=== PATIENT | female | born 1985 | race Caucasian/White ===

== ENCOUNTER 2019-02-04 01:21 | Inpatient (IN) | payer MEDICAID ==
[2019-02-04] MEDS ORDERED: BUTORPHANOL 2 MG INJ IV ×2 (02:00)
[2019-02-04] MEDS ORDERED: LIDOCAINE 1% (MPF) 30 ML INJ INJ (02:00)
[2019-02-04] MEDS ORDERED: IBUPROFEN 600 MG TAB PO (02:00)
[2019-02-04] MEDS ORDERED: CARBOPROST 250 MCG INJ IM ×2 (02:00→12:30)
[2019-02-04] MEDS ORDERED: METHYLERGONOVINE 0.2 MG INJ IM ×2 (02:00→12:30)
[2019-02-04] MEDS ORDERED: OXYTOCIN 30 UNITS/LR 500 ML IV ×3 (02:00→12:30)
[2019-02-04] MEDS ORDERED: MISOPROSTOL 200 MCG TAB PR ×2 (02:00→12:30)
[2019-02-04 02:32] LABS: ADD MAN DIFF? NO
[2019-02-04] MEDS: LACTATED RINGER'S 1,000 ML IV ×2 (02:35→03:58)
[2019-02-04 02:36] LABS: BASOPHILS % 0.4 % (0.0-2.0); EOSINOPHILS # 0.1 10^3/ul (0.0-0.5); EOSINOPHILS % 1.4 % (0.0-7.0); HEMATOCRIT 32.8 % (37.0-47.0); LYMPHOCYTES # 1.7 10^3/ul (0.8-2.9); LYMPHOCYTES % 19.7 % (15.0-51.0); MEAN CORPUSCULAR HEMOGLOBIN 31.1 pg (29.0-33.0); MEAN CORPUSCULAR HGB CONC 33.5 g/dl (32.0-37.0); MEAN CORPUSCULAR VOLUME 92.7 fl (82.0-101.0); MONOCYTE # 1.1 10^3/ul (0.3-0.9); MONOCYTES % 13.5 % (0.0-11.0); NEUTROPHIL # 5.4 10^3/ul (1.6-7.5); NEUTROPHILS % 64.4 % (39.0-77.0); PLATELET COUNT 208 10^3/UL (140-415); RED BLOOD COUNT 3.54 10^6/ul (4.20-5.40); RED CELL DISTRIBUTION WIDTH 13.2 % (11.5-14.5)
[2019-02-04 02:36] LABS: WHITE BLOOD COUNT 8.4 10^3/ul (4.8-10.8)
[2019-02-04] MEDS: AMPICILLIN 2 GM/NS (PMX) 100 ML IV (02:42)
[2019-02-04 02:57] LABS: INR 0.89; PROTIME 12.2 Sec (11.9-14.9)
[2019-02-04 02:58] LABS: PARTIAL THROMBOPLASTIN TIME 26.7 Sec (23.0-35.0)
[2019-02-04] MEDS ORDERED: FENTAnyl 2MCG/ML-ROPIV 0.2% 100 ML (04:05)
[2019-02-04 04:08] LABS: HEPATITIS B SURFACE ANTIGEN NEGATIVE (NEGATIVE)
[2019-02-04] MEDS ORDERED: ONDANSETRON 4 MG INJ IV ×2 (04:30→12:30)
[2019-02-04] MEDS ORDERED: NALOXONE (0.4 MG/ML) INJ IV (04:30)
[2019-02-04] MEDS ORDERED: DIPHENHYDRAMINE 50 MG INJ IV ×2 (04:30→12:30)
[2019-02-04] MEDS: OXYTOCIN 30 UNITS/LR 500 ML IV ×2 (05:18→09:38)
[2019-02-04] MEDS: FENTAnyl 2MCG/ML-ROPIV 0.2% 100 ML BAG EPI (05:20)
[2019-02-04] MEDS: AMPICILLIN 1 GM/NS (PMX) 50 ML IV (06:37)
[2019-02-04] MEDS ORDERED: MISOPROSTOL 50 MCG CAPSULE PO (09:30)
[2019-02-04] MEDS: MINERAL OIL LIGHT 10 ML VIAL TOP (09:37)
[2019-02-04] MEDS: DEXTROSE 5%-LR 1,000 ML IV ×2 (12:10→20:10)
[2019-02-04] MEDS ORDERED: DIBUCAINE 1% 30 GM OINT TOP (12:30)
[2019-02-04] MEDS ORDERED: ACETAMINOPHEN 325 MG TAB PO (12:30)
[2019-02-04] MEDS ORDERED: OXYCODONE/ASPIRIN (4.88/325) TAB PO (12:30)
[2019-02-04] MEDS ORDERED: ZOLPIDEM 5 MG TAB PO (12:30)
[2019-02-04] MEDS: IBUPROFEN 600 MG TAB PO ×2 (12:30→17:29)
[2019-02-04] MEDS: LACTATED RINGER'S 1,000 ML IV* ×2 (13:18→20:10)
[2019-02-04 15:22] LABS: RAPID PLASMA REAGIN NONREACTIVE (NR)
[2019-02-04] MEDS: BENZOCAINE 20% 56 ML SPRAY TOP (17:29)
[2019-02-04] MEDS: WITCH HAZEL/GLYCERIN PAD PR (17:29)
[2019-02-04] MEDS: LANOLIN HPA 1 PKT TOP (17:30)
[2019-02-05] MEDS: IBUPROFEN 600 MG TAB PO ×4 (00:24→17:55)
[2019-02-05] MEDS: DEXTROSE 5%-LR 1,000 ML IV ×2 (04:10→12:10)
[2019-02-05] MEDS: LACTATED RINGER'S 1,000 ML IV* ×3 (04:10→20:10)
[2019-02-05 08:23] LABS: ADD MAN DIFF? NO
[2019-02-05 08:27] LABS: BASOPHILS % 0.4 % (0.0-2.0); EOSINOPHILS # 0.2 10^3/ul (0.0-0.5); EOSINOPHILS % 1.5 % (0.0-7.0); HEMATOCRIT 33.1 % (37.0-47.0); HEMOGLOBIN 10.7 g/dl (12.0-16.0); LYMPHOCYTES # 1.6 10^3/ul (0.8-2.9); MEAN CORPUSCULAR HEMOGLOBIN 30.7 pg (29.0-33.0); MEAN CORPUSCULAR HGB CONC 32.3 g/dl (32.0-37.0); MEAN CORPUSCULAR VOLUME 95.1 fl (82.0-101.0); MEAN PLATELET VOLUME 11.5 fl (7.4-10.4); MONOCYTE # 0.9 10^3/ul (0.3-0.9); MONOCYTES % 9.5 % (0.0-11.0); NEUTROPHIL # 7.1 10^3/ul (1.6-7.5); NEUTROPHILS % 72.2 % (39.0-77.0); PLATELET COUNT 198 10^3/UL (140-415); RED BLOOD COUNT 3.48 10^6/ul (4.20-5.40); RED CELL DISTRIBUTION WIDTH 13.6 % (11.5-14.5)
[2019-02-05 08:27] LABS: WHITE BLOOD COUNT 9.9 10^3/ul (4.8-10.8)
[2019-02-06] MEDS: IBUPROFEN 600 MG TAB PO ×3 (00:02→12:14)
[2019-02-06] MEDS: DEXTROSE 5%-LR 1,000 ML IV ×3 (00:54→12:10)
[2019-02-06] MEDS: LACTATED RINGER'S 1,000 ML IV* ×2 (04:10→12:10)
[2019-02-06] MEDS: SENNA/DOCUSATE NA (8.6MG/50MG) TAB PO (08:21)
[2019-02-06] MEDS: MEASLES,MUMPS,RUBELLA VACCINE INJ SC* (09:00)
[2019-02-06] MEDS: DIPHTH/TET/ACEL PERTUSS (ADULT) 0.5 ML VIAL IM* (12:15)
== END 2019-02-06 14:54 | disposition home or self-care (01) | DRG 807 ==
LOC: OBT 01:21 → L-D 01:21 → OBT 01:47 → L-D 01:47 → PP1 11:41
PROVIDERS: Obstetrics & Gynecology
PROC: 10E0XZZ Delivery of Products of Conception, External Approach (ICD-10-PCS; principal; 2019-02-04)
PROC: 0HQ9XZZ Repair Perineum Skin, External Approach (ICD-10-PCS; 2019-02-04)
DX: O70.0 First degree perineal laceration during delivery (principal); Z37.0 Single live birth; Z3A.38 38 weeks gestation of pregnancy
CPT/HCPCS: 62322; 76815; 76818; 85025; 85610; 85730; 86592; 86850; 86900; 86901; 87340; 90715